=== PATIENT | female | born 1985 | race Caucasian/White ===

== ENCOUNTER 2017-08-09 14:45 | Emergency (ER) | payer BC, OTHER ==
[2017-08-09 15:04] VITALS: BP 154/88; PULSE 104; RESP 20; TEMP 97.1
--- NOTE | 2017-08-09 15:18 | ED ---
General Adult HPI - General Chief complaint: Dental/Oral Stated complaint: Dental Issues Time Seen by Provider: 08/09/17 15:04 Source: patient, RN notes reviewed Mode of arrival: ambulatory Limitations: no limitations - History of Present Illness Initial comments: Patient's a 32-year-old female who presents emergency room today with chief complaint of possible dental abscess. Patient does admit that she does have a fractured tooth of tooth #19. She states that this happened several months ago. She states that yesterday she had some tenderness in this area left lower jaw. States woke up this morning with increased swelling. Patient denies any other complaints or symptoms. Patient denies any recent fever, chills, shortness of breath, chest pain, back pain, abdominal pain, nausea or vomiting, numbness or tingling, headaches or visual changes, or any other complaints. - Related Data Home Medications Medication Instructions Recorded Confirmed Pnv,Calcium 72/Iron/Folic Acid 1 tab PO DAILY 02/29/16 08/09/17 [ Plus Tablet] Previous Rx's Medication Instructions Recorded Amoxicillin 500 mg PO Q8H 10 Days day 08/09/17 Allergies Allergy/AdvReac Type Severity Reaction Status Date / Time No Known Allergies Allergy Verified 08/09/17 15:04 Review of Systems ROS Statement: Those systems with pertinent positive or pertinent negative responses have been documented in the HPI. ROS Other: All systems not noted in ROS Statement are negative. Past Medical History Past Medical History: No Reported History History of Any Multi-Drug Resistant Organisms: None Reported Past Surgical History: No Surgical Hx Reported Past Psychological History: No Psychological Hx Reported Smoking Status: Current every day smoker Past Alcohol Use History: None Reported Past Drug Use History: None Reported General Exam - General Exam Comments Initial Comments: General: The patient is awake and alert, in no distress, and does not appear acutely ill. Eye: Pupils are equal, round and reactive to light, extra-ocular movements are intact. No nystagmus. There is normal conjunctiva bilaterally. No signs of icterus. Ears, nose, mouth and throat: There are moist mucous membranes and no oral lesions. Patient does have a fractured tooth of tooth #19 down to the gumline. She is locally tender in this area but there is no evidence for a abscess to drain at this time. She does have some mild to moderate swelling left lower cheek area. No fluctuant area. Neck: The neck is supple, there is no tenderness or JVD. Cardiovascular: There is a regular rate and rhythm. No murmur, rub or gallop is appreciated. Respiratory: Lungs are clear to auscultation, respirations are non-labored, breath sounds are equal. No wheezes, stridor, rales, or rhonchi. Musculoskeletal: Normal ROM, no tenderness. Strength 5/5. Sensation intact. Pulses equal bilaterally 2+. Neurological: A&O x 3. CN II-XII intact, There are no obvious motor or sensory deficits. Coordination appears grossly intact. Speech is normal. Skin: Skin is warm and dry and no rashes or lesions are noted. Psychiatric: Cooperative, appropriate mood & affect, normal judgment. Limitations: no limitations Course Vital Signs 08/09/17 15:02 Temperature 97.1 F L Pulse Rate 104 H Respiratory 20 Rate Blood Pressure 154/88 O2 Sat by Pulse 100 Oximetry Medical Decision Making - Medical Decision Making Patient has no fluctuant area of a abscess drained at this time will be started on antibiotics of amoxicillin. She is advised close follow-up over the next 2 days return here to the emergency room if any symptoms increase or worsen. She states understanding and is in agreement. Disposition Clinical Impression: Dental abscess Disposition: HOME SELF-CARE Condition: Good Instructions: Dental Abscess (ED) Additional Instructions: Please follow-up with dentist over the next 2 days. Please use antibiotic as prescribed. Please use salt water gargles. Please use tea bag in the gumline as discussed. Please return to emergency room if any symptoms increase or worsen or for any other concerns. Prescriptions: Amoxicillin 500 mg PO Q8H 10 Days day Referrals: None,Stated [Primary Care Provider] - 1-2 days Time of Disposition: 15:16
== END 2017-08-09 15:26 | disposition home or self-care (01) ==
LOC: EC 14:45
DX: O99.612 Diseases of the digestive system complicating pregnancy, second trimester (principal); K04.7 Periapical abscess without sinus; O99.332 Smoking (tobacco) complicating pregnancy, second trimester; F17.200 Nicotine dependence, unspecified, uncomplicated; Z3A.20 20 weeks gestation of pregnancy; Z79.899 Other long term (current) drug therapy
CPT/HCPCS: 99282

== ENCOUNTER → 2017-09-01 | Outpatient (CLI) | payer BC ==
--- NOTE | 2017-09-02 07:46 | US ---
EXAMINATION TYPE: US OB anatomy transabd DATE OF EXAM: 09/01/2017 COMPARISON: NONE HISTORY: Z36.3 confirm dates Anatomy scan TECHNIQUE: Transabdominal (TA) EXAM MEASUREMENTS: GESTATIONAL AGE / DATING Physician Established: (28 weeks/1 days) EDC: 11/23/2017 Dates by LMP: (28 weeks/1 days) EDC: 11/23/2017 Dates by First Scan: No previous this is first scan Dates by Current Scan for: (28 weeks/1 days) EDC: 11/23/2017 SURVEY IUP: Single PLACENTA: Fundal PREVIA: No previa HEIDY: 14.5 cm Normal CERVICAL LENGTH (transabdominal: norm > 3.0cm): 3.9 cm BIOMETRY PRESENTATION: Breech LIE: Transverse lie with head maternal Left BPD: 7.2 cm 29 weeks / 0 days HC: 26.96 cm 29 weeks / 3 days AC: 24.79 cm 29 weeks / 0 days FL: 5.1 cm 27 weeks / 3 days ESTIMATED WEIGHT IN GRAMS: 1237 grams ESTIMATED WEIGHT IN LBS/OZ: 2 lbs. 12 oz. WEIGHT PERCENTAGE BASED ON ESTABLISHED DATE: 50.8 % HC/AC: 1.09 Normal FL/AC: 20.60 Normal HEART RATE: 152 bpm RHYTHM: Normal ANATOMY SEEN (within normal limits): * Lateral Vent (< 1 cm) 0.8 cm * Cisterna Magna (< 1.1 cm) 0.4 cm * Nuchal Fold (< 0.6 cm) 0.3 cm * Cerebellum (varies with age) 3.3 cm Choroid Plexus (bilateral) Midline Falx Cavus Septi Pellucidi Four Chamber Heart Outflow tracts: LVOT/RVOT Stomach Situs Nose / Lips Diaphragm Kidneys (bilateral) Bladder Cord Insert Three Vessel Cord Longitudinal Spine Transverse Spine Arms (bilateral) Legs (bilateral) IMPRESSION: Viable intrauterine of 20 weeks 1 day and an EDC of 11/23/2017.
== END | disposition home or self-care (01) ==
LOC: RADUSWWP 16:12
PROVIDERS: ATTEND Obstetrics & Gynecology
DX: Z36.3 Encounter for antenatal screening for malformations (principal); Z3A.20 20 weeks gestation of pregnancy
CPT/HCPCS: 76811

== ENCOUNTER → 2017-11-06 | Outpatient (CLI) | payer BC ==
--- NOTE | 2017-11-06 17:27 | US ---
EXAMINATION TYPE: US OB >= 14 wk fetus DATE OF EXAM: 11/06/2017 COMPARISON: 09/01/2017 US CLINICAL HISTORY: Z34.80supervision of other normal US for growth TECHNIQUE: Transabdominal (TA) GESTATIONAL AGE / DATING Physician Established: (37 weeks/4 days) EDC: 11/23/2017 Dates by LMP: (37 weeks/4 days) EDC: 11/23/2017 Dates by First Scan: (37 weeks/4 days) EDC: 11/23/2017 Dates by Current Scan: (37 weeks/2 days) EDC: 11/25/2017 SURVEY IUP: Single PLACENTA: Posterior PREVIA: No Previa HEIDY: 18.8 cm Normal CERVICAL LENGTH (transabdominal: norm > 3.0cm): 3.0 cm BIOMETRY PRESENTATION: Vertex BPD: 9.5 cm 38 weeks / 5 days HC: 34.2 cm 39 weeks / 3 days AC: 34.9 cm 38 weeks / 6 days FL: 6.9 cm 35 weeks / 4 days ESTIMATED WEIGHT IN GRAMS: 3411 grams ESTIMATED WEIGHT IN LBS/OZ: 7 lbs. 8 oz. WEIGHT PERCENTAGE BASED ON ESTABLISHED DATES: 74.5% HC/AC: 0.98 Normal FL/AC: 19.9 Abnormal HEART RATE: 128 bpm RHYTHM: Normal Single, viable IUP, FL/AC ratio slightly abnormal, otherwise appeared wnl IMPRESSION: There is satisfactory growth compared to previous exam.
== END | disposition home or self-care (01) ==
LOC: RADUSWWP 15:40
PROVIDERS: ATTEND Obstetrics & Gynecology
DX: Z34.83 Encounter for supervision of other normal pregnancy, third trimester (principal); Z3A.37 37 weeks gestation of pregnancy
CPT/HCPCS: 76805